=== PATIENT | female | born 1970 | race Caucasian/White ===

== ENCOUNTER 2020-05-24 21:01 | Day surgery (SDCO) | payer OTHER ==
[~2020-05-24 21:01] MED LIST: MEDROL 4MG DOSEP4 MG PO; MOTRIN600 MG PO; PAXIL20 MG PO; ZOFRAN4 M1 PO
[2020-05-24 21:24] LABS: BASOPHIL 0.4 % (0-2); EOSINOPHIL 0.1 % (0-5); HCT 38.8 % (37.0-47.0); HGB 12.5 g/dl (12.5-16.0); LYMPHOCYTE 7.4 % (15-48); MCH 28.1 pg (25.0-31.0); MCHC 32.2 g/dL (32.0-36.0); MCV 87.2 fL (78.0-100.0); MONOCYTE 3.5 % (0-12); MPV 10.8 fL (6.0-9.5); NEUTROPHIL 88.1 % (41-80); NRBC 0; PLT 441 K/uL (150-400); RBC 4.45 M/uL (4.20-5.40); RDW 13.9 % (11.5-14.0); WBC 20.9 K/uL (4.0-10.5)
[2020-05-24 21:35] LABS: ALBUMIN 3.7 g/dL (3.4-5.0); BILIRUBIN - TOTAL 0.8 mg/dL (0.2-1.0); BUN/CREAT RATIO (CALC) 23.6 RATIO; CREATININE 0.55 mg/dL (0.51-0.95); GLOBULIN (CALCULATION) 3.7 g/dL; POTASSIUM 3.7 mmol/L (3.5-5.1); TOTAL PROTEIN 7.4 g/dL (6.4-8.2)
[2020-05-24 22:52] LABS: CORONAVIRUS 2019 SARS-COV-2 NEGATIVE (NEGATIVE); INFLUENZA A NAA NEGATIVE (NEGATIVE)
[2020-05-25] MEDS ORDERED: XANAX0.5 MG PO (00:46)
[2020-05-25] MEDS ORDERED: WELLBUTRIN XL150 MG PO (02:33)
[2020-05-25] MEDS ORDERED: TRAZODONE 100M100 MG PO (02:34)
[2020-05-25 04:28] LABS: BASOPHIL 0.3 % (0-2); EOSINOPHIL 0.9 % (0-5); HCT 31.3 % (37.0-47.0); HGB 10.1 g/dl (12.5-16.0); LYMPHOCYTE 16.2 % (15-48); MCH 28.2 pg (25.0-31.0); MCHC 32.3 g/dL (32.0-36.0); MCV 87.4 fL (78.0-100.0); MONOCYTE 5.9 % (0-12); MPV 10.2 fL (6.0-9.5); NEUTROPHIL 76.2 % (41-80); NRBC 0; PLT 307 K/uL (150-400); RBC 3.58 M/uL (4.20-5.40); RDW 13.7 % (11.5-14.0); WBC 12.9 K/uL (4.0-10.5)
[2020-05-25 04:39] LABS: INR 1.11 (0.9-1.2); PROTHROMBIN TIME 13.6 SECONDS (11.4-13.6)
[2020-05-25 04:45] LABS: ALBUMIN 2.7 g/dL (3.4-5.0); BILIRUBIN - TOTAL 0.6 mg/dL (0.2-1.0); BUN/CREAT RATIO (CALC) 23.1 RATIO; CREATININE 0.52 mg/dL (0.51-0.95); POTASSIUM 3.6 mmol/L (3.5-5.1); TOTAL PROTEIN 5.7 g/dL (6.4-8.2)
[2020-05-25 07:28] LABS: BILIRUBIN NEGATIVE (NEGATIVE); BLOOD NEGATIVE Ery/uL (NEGATIVE); CLARITY CLEAR (CLEAR); COLOR YELLOW (YELLOW); GLUCOSE (U) NORMAL (NORMAL); LEUKOCYTES NEGATIVE Leu/uL (NEGATIVE); NITRITE NEGATIVE (NEGATIVE); PROTEIN NEGATIVE (NEGATIVE); SPECIFIC GRAVITY 1.015 (1.001-1.030)
--- NOTE | 2020-05-25 14:53 | NUR ---
PT REPORTS SHE LIVES ALONE; PT REPORTS SHE IS INDEPENDENT WITH ADL'S PLEASE ADVISE OF ANY DISCHARGE PLANS
[2020-05-25] MEDS ORDERED: PERCOCET 5-3251 EACH PO (15:05)
[2020-05-25] MEDS ORDERED: LEVAQUIN500 MG PO (15:05)
[2020-05-25] MEDS ORDERED: CULTURELLE1 EAC1 PO (15:05)
[2020-05-25] MEDS ORDERED: ONDANSETRON HCL4 MG PO (15:30)
== END 2020-05-25 18:10 | disposition home or self-care (01) ==
LOC: FER 21:01 → FMS 22:14
PROVIDERS: Emergency Medicine Emergency Medical Services; Nurse Practitioner Family; ADMIT Internal Medicine
DX: K80.10 Calculus of gallbladder with chronic cholecystitis without obstruction (principal); I10 Essential (primary) hypertension; J45.909 Unspecified asthma, uncomplicated; Z79.899 Other long term (current) drug therapy; Z20.822 Contact with and (suspected) exposure to COVID-19; Z88.1 Allergy status to other antibiotic agents; Z88.0 Allergy status to penicillin; Z88.8 Allergy status to other drugs, medicaments and biological substances; Z98.890 Other specified postprocedural states
CPT/HCPCS: 36415; 74300; 76705; 80053; 81003; 82150; 83605; 83690; 85025; 85610; 87040; 90686; 99284; G0378; J1100; J1170; J1885; J1956; J2250; J2270; J2405; J2704; J2710; J3010; J7030; J7120; Q9967; U0002

== ENCOUNTER 2020-12-13 15:20 | Emergency (ER) | payer OTHER ==
[~2020-12-13] VITALS: Ht 195.6 cm; Wt 93.9 kg
[~2020-12-13 15:20] MED LIST changes: +CULTURELLE1 EAC1 PO; +LEVAQUIN500 MG PO; +ONDANSETRON HCL4 MG PO; +PERCOCET 5-3251 EACH PO; +TRAZODONE 100M100 MG PO; +WELLBUTRIN XL150 MG PO; +XANAX0.5 MG PO
[2020-12-13 17:35] LABS: BASOPHIL 0.6 % (0-2); HCT 45.4 % (37.0-47.0); HGB 14.4 g/dl (12.5-16.0); LYMPHOCYTE 24.7 % (15-48); MCH 27.1 pg (25.0-31.0); MCHC 31.7 g/dL (32.0-36.0); MCV 85.5 fL (78.0-100.0); MONOCYTE 5.6 % (0-12); MPV 10.7 fL (6.0-9.5); NEUTROPHIL 66.7 % (41-80); NRBC 0; PLT 405 K/uL (150-400); RBC 5.31 M/uL (4.20-5.40); RDW 15.4 % (11.5-14.0); WBC 11.5 K/uL (4.0-10.5)
[2020-12-13 17:55] LABS: BUN/CREAT RATIO (CALC) 16.9 RATIO; CREATININE 0.71 mg/dL (0.51-0.95); POTASSIUM 3.7 mmol/L (3.5-5.1)
[2020-12-13 18:12] LABS: BILIRUBIN NEGATIVE (NEGATIVE); BLOOD NEGATIVE Ery/uL (NEGATIVE); CLARITY CLEAR (CLEAR); COLOR YELLOW (YELLOW); GLUCOSE (U) NORMAL (NORMAL); LEUKOCYTES NEGATIVE Leu/uL (NEGATIVE); NITRITE NEGATIVE (NEGATIVE); PROTEIN NEGATIVE (NEGATIVE); UROBILINOGEN 0.2 mg/dL (0.2-1.0)
== END 2020-12-13 19:39 | disposition home or self-care (01) ==
LOC: FER 15:20
PROVIDERS: Nurse Practitioner Family
DX: R05 Cough (principal); R53.81 Other malaise; R53.83 Other fatigue; M79.604 Pain in right leg; M79.652 Pain in left thigh; E11.9 Type 2 diabetes mellitus without complications; Z88.0 Allergy status to penicillin; Z88.1 Allergy status to other antibiotic agents; Z88.2 Allergy status to sulfonamides
CPT/HCPCS: 36415; 71046; 73502; 73590; 80048; 81003; 85025; J1885; J7030

== ENCOUNTER → 2021-03-16 | Day surgery (SDC) | payer OTHER ==
[~2021-03-16] VITALS: Ht 165.1 cm; Wt 87.1 kg
[~2021-03-16] MED LIST changes: +IBUPROFEN400 MG PO; +MULTI FOR HER1 EAC1 PO; +SYMBYAX 6-25 M1 EACH PO
== END | disposition home or self-care (01) ==
LOC: FAS 07:06
DX: Z12.11 Encounter for screening for malignant neoplasm of colon (principal); Z86.010 Personal history of colon polyps; Z80.0 Family history of malignant neoplasm of digestive organs; K80.50 Calculus of bile duct without cholangitis or cholecystitis without obstruction; F32.A Depression, unspecified; Z88.1 Allergy status to other antibiotic agents; Z88.0 Allergy status to penicillin; Z87.891 Personal history of nicotine dependence; K57.30 Diverticulosis of large intestine without perforation or abscess without bleeding
CPT/HCPCS: J2704; J7120